=== PATIENT | male | born 1955 | race Caucasian/White ===

== ENCOUNTER 2021-09-25 16:29 | Inpatient (IN) | payer OTHER ==
[~2021-09-25] VITALS: Ht 177.8 cm; Wt 123.5 kg
[2021-09-25 19:32] LABS: BASOPHIL 0.2 % (0-2); EOSINOPHIL 0.4 % (0-7); HCT 34.9 % (42.0-52.0); HGB 11.3 g/dl (13.2-18.0); LYMPHOCYTE 3.4 % (15-48); MCH 27.1 pg (25.0-31.0); MCHC 32.4 g/dL (32.0-36.0); MCV 83.7 fL (78.0-100.0); MPV 10.1 fL (6.0-9.5); NRBC 0; PLT 422 K/uL (150-400); RBC 4.17 M/uL (4.70-6.00); RDW 15.2 % (11.5-14.0); WBC 24.1 K/uL (4.0-10.5)
[2021-09-25 19:34] LABS: NEUTROPHIL 86.7 % (41-80)
[2021-09-25 19:51] LABS: BUN/CREAT RATIO (CALC) 8.8 RATIO; CREATININE 3.86 mg/dL (0.67-1.17); POTASSIUM 4.8 mmol/L (3.5-5.1)
[2021-09-25 22:50] LABS: CORONAVIRUS 2019 SARS-COV-2 NEGATIVE (NEGATIVE); INFLUENZA A NAA NEGATIVE (NEGATIVE)
[2021-09-26 01:17] LABS: PROTHROMBIN TIME 69.1 SECONDS (11.8-13.4)
[2021-09-26 01:21] LABS: INR 8.54 (0.9-1.2)
[2021-09-26] MEDS ORDERED: CLONIDINE HCL0.1 MG PO (03:14)
[2021-09-26] MEDS ORDERED: WARFARIN SODIUM4 MG PO (03:16)
[2021-09-26] MEDS ORDERED: NORVASC5 MG PO (03:18)
[2021-09-26] MEDS ORDERED: GLUCOTROL XL5 MG PO (03:19)
[2021-09-26] MEDS ORDERED: LOPRESSOR50 MG PO (03:20)
[2021-09-26] MEDS ORDERED: JANUVIA50 MG PO (03:21)
[2021-09-26] MEDS ORDERED: PRINIVIL20 MG PO (03:21)
[2021-09-26] MEDS ORDERED: PLAVIX75 MG PO (03:22)
[2021-09-26] MEDS ORDERED: METFORMIN HCL500 MG PO (03:23)
[2021-09-26 06:08] LABS: BASOPHIL 0.2 % (0-2); HCT 29.3 % (42.0-52.0); HGB 9.5 g/dl (13.2-18.0); LYMPHOCYTE 5.7 % (15-48); MCHC 32.4 g/dL (32.0-36.0); MCV 83.2 fL (78.0-100.0); MONOCYTE 9.4 % (0-12); MPV 9.4 fL (6.0-9.5); NEUTROPHIL 82.2 % (41-80); NRBC 0; PLT 349 K/uL (150-400); RBC 3.52 M/uL (4.70-6.00); RDW 15.2 % (11.5-14.0); WBC 19.2 K/uL (4.0-10.5)
[2021-09-26 06:31] LABS: CREATININE 3.87 mg/dL (0.67-1.17)
[2021-09-26 17:29] LABS: BILIRUBIN NEGATIVE (NEGATIVE); BLOOD 2+ Ery/uL (NEGATIVE); CLARITY CLEAR (CLEAR); COLOR YELLOW (YELLOW); GLUCOSE (U) TRACE mg/dL (NORMAL); LEUKOCYTES NEGATIVE Leu/uL (NEGATIVE); NITRITE NEGATIVE (NEGATIVE); PROTEIN 2+ mg/dL (NEGATIVE); SPECIFIC GRAVITY 1.015 (1.001-1.030); UROBILINOGEN 0.2 mg/dL (0.2-1.0)
[2021-09-26 17:40] LABS: BACTERIA TRACE
[2021-09-27 05:51] LABS: BASOPHIL 0.2 % (0-2); EOSINOPHIL 2.1 % (0-7); HCT 32.3 % (42.0-52.0); HGB 10.5 g/dl (13.2-18.0); LYMPHOCYTE 5.7 % (15-48); MCH 27.1 pg (25.0-31.0); MCHC 32.5 g/dL (32.0-36.0); MCV 83.5 fL (78.0-100.0); MONOCYTE 7.8 % (0-12); MPV 9.6 fL (6.0-9.5); NEUTROPHIL 82.4 % (41-80); NRBC 0; PLT 387 K/uL (150-400); RBC 3.87 M/uL (4.70-6.00)
[2021-09-27 06:12] LABS: INR 4.53 (0.9-1.2); PROTHROMBIN TIME 41.8 SECONDS (11.8-13.4)
[2021-09-27 06:17] LABS: ALBUMIN 1.2 g/dL (3.4-5.0); ALKALINE PHOSHATASE 121 U/L (46-116); ALT 58 U/L (16-63); AST 107 U/L (15-37); BILIRUBIN - TOTAL 0.3 mg/dL (0.2-1.0); BUN 32 mg/dL (7-18); BUN/CREAT RATIO (CALC) 8.8 RATIO; C-REACTIVE PROTEIN >18.00 mg/dL (<=0.90); CHLORIDE 96 mmol/L (98-107); CO2 (BICARBONATE) 25 mmol/L (21-32); CREATININE 3.65 mg/dL (0.67-1.17); GLOBULIN (CALCULATION) 5.7 g/dL; GLUCOSE 161 mg/dL (74-106); TOTAL PROTEIN 6.9 g/dL (6.4-8.2)
[2021-09-28 07:11] LABS: BASOPHIL 0.3 % (0-2); EOSINOPHIL 2.2 % (0-7); HGB 9.9 g/dl (13.2-18.0); LYMPHOCYTE 5.7 % (15-48); MCH 26.9 pg (25.0-31.0); MCHC 31.9 g/dL (32.0-36.0); MCV 84.2 fL (78.0-100.0); MONOCYTE 7.8 % (0-12); MPV 9.6 fL (6.0-9.5); NEUTROPHIL 80.9 % (41-80); NRBC 0; PLT 423 K/uL (150-400); RBC 3.68 M/uL (4.70-6.00); RDW 15.1 % (11.5-14.0); WBC 19.5 K/uL (4.0-10.5)
[2021-09-28 07:18] LABS: INR 2.08 (0.9-1.2); PROTHROMBIN TIME 22.5 SECONDS (11.8-13.4)
[2021-09-28 07:36] LABS: ALBUMIN 1.2 g/dL (3.4-5.0); BILIRUBIN - TOTAL 0.4 mg/dL (0.2-1.0); BUN/CREAT RATIO (CALC) 8.5 RATIO; CREATININE 3.43 mg/dL (0.67-1.17); GLOBULIN (CALCULATION) 5.6 g/dL; POTASSIUM 4.4 mmol/L (3.5-5.1); TOTAL PROTEIN 6.8 g/dL (6.4-8.2)
[2021-09-29 06:55] LABS: BASOPHIL 0.3 % (0-2); HCT 32.3 % (42.0-52.0); HGB 10.4 g/dl (13.2-18.0); LYMPHOCYTE 5.6 % (15-48); MCH 26.9 pg (25.0-31.0); MCHC 32.2 g/dL (32.0-36.0); MCV 83.7 fL (78.0-100.0); MONOCYTE 6.3 % (0-12); MPV 9.3 fL (6.0-9.5); NEUTROPHIL 82.5 % (41-80); NRBC 0; PLT 450 K/uL (150-400); RBC 3.86 M/uL (4.70-6.00); RDW 15.1 % (11.5-14.0)
[2021-09-29 07:02] LABS: WBC 19.3 K/uL (4.0-10.5)
[2021-09-29 07:10] LABS: INR 1.61 (0.9-1.2); PROTHROMBIN TIME 18.4 SECONDS (11.8-13.4)
[2021-09-29 07:31] LABS: ALBUMIN 1.2 g/dL (3.4-5.0); BILIRUBIN - TOTAL 0.3 mg/dL (0.2-1.0); CREATININE 2.99 mg/dL (0.67-1.17); GLOBULIN (CALCULATION) 5.8 g/dL; POTASSIUM 4.5 mmol/L (3.5-5.1)
== END 2021-09-30 04:30 | disposition other institution (70) | DRG 638 ==
LOC: FER 16:29 → FMS 09-26 01:09
PROVIDERS: Internal Medicine; Internal Medicine Cardiovascular Disease; Nurse Practitioner; ADMIT Internal Medicine
DX: E11.69 Type 2 diabetes mellitus with other specified complication (principal); M86.8X7 Other osteomyelitis, ankle and foot; E87.1 Hypo-osmolality and hyponatremia; L97.419 Non-pressure chronic ulcer of right heel and midfoot with unspecified severity; L03.115 Cellulitis of right lower limb; Z20.822 Contact with and (suspected) exposure to COVID-19; N17.9 Acute kidney failure, unspecified; R01.1 Cardiac murmur, unspecified; R06.02 Shortness of breath; E66.9 Obesity, unspecified; E11.621 Type 2 diabetes mellitus with foot ulcer; E78.5 Hyperlipidemia, unspecified; I12.9 Hypertensive chronic kidney disease with stage 1 through stage 4 chronic kidney disease, or unspecified chronic kidney disease; E11.22 Type 2 diabetes mellitus with diabetic chronic kidney disease; N18.4 Chronic kidney disease, stage 4 (severe); R74.01 Elevation of levels of liver transaminase levels; Z86.73 Personal history of transient ischemic attack (TIA), and cerebral infarction without residual deficits; Z86.14 Personal history of Methicillin resistant Staphylococcus aureus infection; Z98.890 Other specified postprocedural states; Z87.891 Personal history of nicotine dependence; Z79.899 Other long term (current) drug therapy; Z79.02 Long term (current) use of antithrombotics/antiplatelets; Z79.84 Long term (current) use of oral hypoglycemic drugs; Z79.01 Long term (current) use of anticoagulants; Z68.39 Body mass index [BMI] 39.0-39.9, adult
CPT/HCPCS: 36415; 71045; 71250; 73590; 73650; 73721; 80048; 80053; 80202; 81001; 82962; 83880; 84145; 84484; 85025; 85610; 85730; 86140; 87070; 87077; 87186; 87205; 93005; 94010; 97162; 97166; 97530-GP; 97535; J0692; J1644; J1815; J3370; J7050; U0002

== ENCOUNTER 2021-12-16 08:01 | Day surgery (SDCO) | payer OTHER ==
[~2021-12-16] VITALS: Ht 177.8 cm; Wt 113.4 kg
[~2021-12-16 08:01] MED LIST: CLONIDINE HCL0.1 MG PO; GLUCOTROL XL5 MG PO; JANUVIA50 MG PO; LOPRESSOR50 MG PO; METFORMIN HCL500 MG PO; NORVASC5 MG PO; PLAVIX75 MG PO; PRINIVIL20 MG PO; WARFARIN SODIUM4 MG PO
[2021-12-16 09:45] LABS: BASOPHIL 0.5 % (0-2); EOSINOPHIL 2.3 % (0-7); HCT 38.4 % (42.0-52.0); HGB 12.5 g/dl (13.2-18.0); LYMPHOCYTE 7.9 % (15-48); MCH 26.7 pg (25.0-31.0); MCHC 32.6 g/dL (32.0-36.0); MCV 81.9 fL (78.0-100.0); MONOCYTE 6.6 % (0-12); MPV 10.2 fL (6.0-9.5); NEUTROPHIL 82.4 % (41-80); NRBC 0; PLT 179 K/uL (150-400); RBC 4.69 M/uL (4.70-6.00); RDW 14.3 % (11.5-14.0); WBC 11.7 K/uL (4.0-10.5)
[2021-12-16 09:55] LABS: BUN/CREAT RATIO (CALC) 13.6 RATIO; CREATININE 1.91 mg/dL (0.67-1.17)
[2021-12-16] MEDS ORDERED: ELIQUIS2.5 MG PO (14:10)
[2021-12-16] MEDS ORDERED: LEVEMIR FL100 UNIT/1 SC (14:12)
[2021-12-16] MEDS ORDERED: LIPITOR20 MG PO (14:13)
[2021-12-16] MEDS ORDERED: ALOGLIPTIN6.25 MG PO (14:16)
[2021-12-16] MEDS ORDERED: HYDRALAZINE25 MG PO (14:17)
[2021-12-16 14:27] LABS: INR 1.11 (0.9-1.2); PROTHROMBIN TIME 13.7 SECONDS (11.8-13.4)
[2021-12-17 06:16] LABS: BASOPHIL 0.8 % (0-2); EOSINOPHIL 2.5 % (0-7); HCT 37.7 % (42.0-52.0); HGB 12.4 g/dl (13.2-18.0); MCH 27.1 pg (25.0-31.0); MCHC 32.9 g/dL (32.0-36.0); MCV 82.5 fL (78.0-100.0); MONOCYTE 9.1 % (0-12); MPV 10.1 fL (6.0-9.5); NEUTROPHIL 73.3 % (41-80); NRBC 0; PLT 171 K/uL (150-400); RBC 4.57 M/uL (4.70-6.00); RDW 14.3 % (11.5-14.0); WBC 9.8 K/uL (4.0-10.5)
[2021-12-17 06:37] LABS: ALBUMIN 2.6 g/dL (3.4-5.0); BILIRUBIN - TOTAL 0.3 mg/dL (0.2-1.0); BUN/CREAT RATIO (CALC) 10.5 RATIO; GLOBULIN (CALCULATION) 4.3 g/dL; POTASSIUM 3.6 mmol/L (3.5-5.1); TOTAL PROTEIN 6.9 g/dL (6.4-8.2)
--- NOTE | 2021-12-17 13:45 | NUR ---
PT USES [employer] [facility] [facility]. PT HAS OWN WHEELCHAIR. CALL [phone] TO SET UP TRANSPORTATION.
== END 2021-12-17 17:46 | disposition home health service (06) ==
LOC: FER 08:01 → FMS 10:23
PROVIDERS: Emergency Medicine; ADMIT Allergy & Immunology Allergy
DX: L89.620 Pressure ulcer of left heel, unstageable (principal); E11.628 Type 2 diabetes mellitus with other skin complications; E11.51 Type 2 diabetes mellitus with diabetic peripheral angiopathy without gangrene; E11.40 Type 2 diabetes mellitus with diabetic neuropathy, unspecified; E11.22 Type 2 diabetes mellitus with diabetic chronic kidney disease; E78.5 Hyperlipidemia, unspecified; N18.9 Chronic kidney disease, unspecified; E66.9 Obesity, unspecified; I10 Essential (primary) hypertension; Z79.4 Long term (current) use of insulin; Z87.891 Personal history of nicotine dependence; Z79.84 Long term (current) use of oral hypoglycemic drugs; Z89.511 Acquired absence of right leg below knee; Z88.8 Allergy status to other drugs, medicaments and biological substances; Z79.01 Long term (current) use of anticoagulants; Z86.73 Personal history of transient ischemic attack (TIA), and cerebral infarction without residual deficits; Z68.35 Body mass index [BMI] 35.0-35.9, adult
CPT/HCPCS: 36415; 73630; 73721; 80048; 80053; 83036; 85025; 85610; 86140; G0378